=== PATIENT | female | born 2000 | race Caucasian/White ===

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

== ENCOUNTER 2021-01-14 11:52 | Emergency (ER) | payer MEDICAID ==
[2021-01-14] MEDS ORDERED: Ibuprofen 200 MG TAB ONE (12:57)
== END 2021-01-14 13:53 | disposition home or self-care (01) ==
LOC: CSHERS 11:52
DX: R07.81 Pleurodynia (principal); R05.9 Cough, unspecified
CPT/HCPCS: 71046